=== PATIENT | female | born 1975 | race Asian ===

== ENCOUNTER 2017-03-22 15:03 | Emergency (ER) | payer OTHER ==
[~2017-03-22] VITALS: Ht 152.4 cm; Wt 63.5 kg
[2017-03-22 15:05] VITALS: BP_SYST 152
[2017-03-22] MEDS ORDERED: LIDOCAINE 1% 10 MG/ML, 20 ML MDV INJ ONE (17:30)
[2017-03-22] MEDS ORDERED: IBUPROFEN 800 MG TABLET PO ONE (17:45)
[2017-03-22 18:45] VITALS: BP_SYST 134
== END 2017-03-22 18:45 | disposition home or self-care (01) ==
LOC: SED 15:03
DX: L03.012 Cellulitis of left finger (principal); R03.0 Elevated blood-pressure reading, without diagnosis of hypertension
CPT/HCPCS: 26010; 99283; J2001